=== PATIENT | female | born 1955 | race Caucasian/White ===

== ENCOUNTER 2023-05-31 11:28 | Emergency (ER) | payer MEDICARE ==
[2023-05-31 12:33] LABS: BASE EXCESS VENOUS -0.5 mm/L; BASOPHILS ABSOLUTE AUTO 0.03 K/uL (0.00-0.10); BASOPHILS PERCENT AUTO 0.3 % (0.1-1.3); BICARBONATE,VENOUS 23.7 mmol/L; CARBOXYHEMOGLOBIN 1.9 % (0.0-1.6); EOSINOPHILS ABSOLUTE AUTO 0.09 K/uL (0.00-0.40); HEMATOCRIT 39.4 % (34.3-46.0); HEMOGLOBIN 13.5 g/dL (11.2-15.5); IMMATURE GRAN ABSOLUTE AUTO 0.06 K/uL (0.00-0.23); IMMATURE GRAN PERCENT AUTO 0.7 % (0.0-0.7); LYMPHOCYTES ABSOLUTE AUTO 1.23 K/uL (0.8-3.3); LYMPHOCYTES PERCENT AUTO 13.7 % (11.4-47.7); MEAN CORPUSCULAR HEMOGLOBIN 29.8 pg (31.6-35.5); MEAN CORPUSCULAR HGB CONC 34.3 g/dL (31.6-35.5); METHEMOGLOBIN 0.9 %; MONOCYTES ABSOLUTE AUTO 0.44 K/uL (0.20-0.90); MONOCYTES PERCENT AUTO 4.9 % (3.3-12.6); NEUTROPHILS ABSOLUTE AUTO 7.15 K/uL (1.0-7.6); NEUTROPHILS PERCENT AUTO 79.4 % (40.0-78.1); O2 SATURATION VENOUS 81.7; OXYHEMOGLOBIN 79.4 %; PCO2 VENOUS 39.7 mm/Hg; PH,VENOUS 7.394 (7.350-7.450); PLATELET COUNT,PLT 274 K/uL (130-375); PO2 VENOUS 45.8 mm/Hg; RED BLOOD CELL COUNT 4.53 M/uL (3.77-5.24)
[2023-05-31] MEDS: Metoprolol Succinate 50 MG Tab.ER PO ONE (12:39)
[2023-05-31] MEDS: metFORMIN 500 MG Tab PO ONE (12:40)
[2023-05-31 12:53] LABS: PROTHROMBIN TIME 9.9 sec (9.2-10.6)
[2023-05-31 13:01] LABS: A/G RATIO 0.9 (1.2-2.2); ALANINE AMINOTRANSFERASE,ALT 25 U/L (12-78); ALBUMIN 3.4 g/dL (3.4-5.0); ALKALINE PHOSPHATASE 88 U/L (46-116); ASPARTATE AMNIOTRANSFERASE,AST 17 U/L (15-37); BILIRUBIN TOTAL 0.5 mg/dL (0.2-1.0); BLOOD UREA NITROGEN,BUN 14 mg/dL (7-18); CARBON DIOXIDE,CO2 24 mmol/L (21-32); CHLORIDE,CL 102 mmol/L (100-108); CREATININE 0.7 mg/dL (0.6-1.0); EST CRCL DRUG DOSING (CG) 60.84 mL/min; ESTIMATED GFR 94 mL/min (>60); GLUCOSE RANDOM 240 mg/dL (74-106); POTASSIUM,K 3.3 mmol/L (3.6-5.2); PROTEIN TOTAL,TP 7.1 g/dL (6.4-8.2); SODIUM,NA 139 mmol/L (140-148)
[2023-05-31 13:07] LABS: ANION GAP 16.3 mmol/L (5.0-14.0)
[2023-05-31] MEDS: Potassium Chloride 10 MEQ Cap.ER PO ONE (13:35)
[2023-05-31 14:01] LABS: APPEARANCE,URINE CLEAR (CLEAR); BILIRUBIN,URINE NEGATIVE (NEGATIVE); COLOR,URINE YELLOW (YELLOW); GLUCOSE,URINE 500 mg/dL (NEGATIVE); KETONES,URINE TRACE mg/dL (NEGATIVE); LEUKOCYTE ESTERASE,URINE NEGATIVE (NEGATIVE); NITRITE,URINE NEGATIVE (NEGATIVE); OCCULT BLOOD,URINE NEGATIVE (NEGATIVE); PROTEIN,URINE NEGATIVE (NEGATIVE); UROBILINOGEN,URINE 0.2 EU/dL (0.2-1.0)
[2023-05-31 14:05] LABS: BACTERIA,URINE RARE; EPITHELIAL CELLS,URINE NOT SEEN; MUCUS,URINE NOT SEEN; RBC,URINE 0-5 (0-5); WBC,URINE 0-5 (0-5)
[2023-05-31 14:06] LABS: AMORPHOUS SEDIMENT,URINE NOT SEEN
== END 2023-05-31 14:29 | disposition home or self-care (01) ==
LOC: JP.ED 11:28
DX: R73.9 Hyperglycemia, unspecified (principal); F41.0 Panic disorder [episodic paroxysmal anxiety]; I10 Essential (primary) hypertension; E78.5 Hyperlipidemia, unspecified; Z91.148 Patient's other noncompliance with medication regimen for other reason; Z88.0 Allergy status to penicillin; Z88.2 Allergy status to sulfonamides; Z79.84 Long term (current) use of oral hypoglycemic drugs; Z79.899 Other long term (current) drug therapy; Z79.01 Long term (current) use of anticoagulants; Z79.51 Long term (current) use of inhaled steroids
CPT/HCPCS: 36415; 80053; 81001; 82803; 84484; 85025; 85610; 93005; 99284; A9270